=== PATIENT | male | born 1960 | race Caucasian/White ===

== ENCOUNTER 2016-06-21 08:12 | Emergency (ER) | payer BC ==
[~2016-06-21] VITALS: Ht 185.4 cm; Wt 215.0 kg
[2016-06-21] MEDS ORDERED: SOD CHLORIDE 0.9% 1,000 ML IV STA ×2 (08:19→10:25)
[2016-06-21 08:26] VITALS: Ht 185.4 cm; Wt 215.0 kg
--- NOTE | 2016-06-21 08:35 | ERA ---
ER Documentation Chief Complaint Date/Time DATE: 06/21/16 TIME: 08:26 Chief Complaint HPI This is a 55-year-old male with a known history of hypertension and previous triple bypass in 2003 the presents to the emergency department today after he had a sudden onset of dizziness lightheadedness and a feeling as though he was going to pass out. The patient awoke this morning, and had not eaten breakfast. He stated he went to the gym and did 30 minutes on the elliptical and then weight training. During the weight training the patient stated he began to feel very dizzy. He took a shower and the dizziness still persisted. The patient lying down and felt as though he was going to pass out but did not have a complete transient loss of consciousness. A worker at the gym phone 911 and when EMS arrived they indicated the patient was cool clammy and hypotensive with a blood pressure of 90/60. By the time he arrived to the hospital he had received 350 cc of normal saline and his blood pressure had improved to 110/80. The patient indicates he works out on a daily basis and does not normally eat breakfast prior to working out. He states he has never had any similar symptoms in the past. He does state he feels mild shortness of breath and 7 days prior to arrival returned from a trip from [place]. He denies any swelling or pain in his lower extremities. He denies any chest pain or pressure that radiates to the neck or back or jaw. EMS had performed an EKG tracing that was concerning for possible ST segment elevation in the inferior leads. Again the patient denies any chest pain or pressure. He denies a productive or nonproductive cough. He has had no rashes. He denies any fevers shaking or chills ROS All systems reviewed and are negative except as per history of present illness. Medications Home Meds Reported Medications Ascorbic Acid* (Vitamin C*) 500 Mg Capsule.sa, 500 MG PO DAILY, CAP 06/21/16 Cholecalciferol* (Vitamin D3*) 1,000 Unit Tablet, 1000 UNIT PO DAILY, TAB 06/21/16 Aspirin (Low Dose Aspirin) 81 Mg Tablet.dr, 81 MG PO DAILY, #30 TAB 06/21/16 Metoprolol Tartrate* (Lopressor*) 25 Mg Tab, 25 MG PO DAILY, #60 TAB 06/21/16 Rosuvastatin Calcium* (Crestor*) 20 Mg Tablet, 20 MG PO QHS, #30 TAB 06/21/16 Isosorbide Mononitrate* (Isosorbide Mononitrate*) 30 Mg Tab.er.24h, 30 MG PO DAILY, TAB 06/21/16 Clopidogrel Bisulfate (Clopidogrel) 75 Mg Tablet, 75 MG PO DAILY, #30 TAB 06/21/16 Irbesartan* (Irbesartan*) 150 Mg Tablet, 150 MG PO DAILY, TAB 06/21/16 Sitagliptin Phos/Metformin HCl (Janumet 50-500 mg Tablet) 1 Each Tablet, 1 EACH PO DAILY, TAB 06/21/16 Allergies Allergies: Coded Allergies: No Known Allergy (Unverified , 06/21/16) Physical Exam Vitals Vital Signs Date Time Temp Pulse Resp B/P Pulse Ox O2 Delivery O2 Flow Rate FiO2 06/21/16 10:05 73 14 133/72 100 Room Air 06/21/16 10:01 133/72 141/78 133/74 06/21/16 08:26 97.6 66 14 116/73 100 Physical Exam Constitutional:Well-developed. Well-nourished. HEENT:Normocephalic. Atraumatic.Pupils were equal round reactive to light. Dry mucous membranes.No tonsillar exudates. Neck: No nuchal rigidity. No lymphadenopathy. No posterior cervical spine tenderness or step-offs. Respiratory: Not using accessory muscles of respiration.Lungs were clear to auscultation bilaterally. No rhonchi. No rales. No wheezing. Cardiovascular: Regular rate regular rhythm.No murmurs. No rubs were appreciated.S1, S2 normal. Distal pulses are palpable 2+ bilaterally. GI: Abdomen was soft. Nontender. Non Distended. No pulsatile abdominal masses or bruits. No rebound. No guarding. Bowel sounds were present and normal. Muscle skeletal: Full range of motion of both the upper and lower extremities bilaterally.Normal muscle tone.No assymetrical calf tenderness or swelling. Homans sign negative Skin: Clammy with no petechia, no purpura. No lesions on the palms or the soles of the feet. No maculopapular rash. NEURO: Patient was alert, awake, orientated x3.No facial droop. Gait observed and normal with no ataxia.Speech had regular rate and rhythm. No focal neurological deficits. Result Diagram: 06/21/16 0830 06/21/16 0830 Results 24 hrs Laboratory Tests Test 06/21/16 08:30 Activated Partial Thromboplast Time 20.9Sec Alanine Aminotransferase (ALT/SGPT) 44IU/L Albumin 4.2g/dl Albumin/Globulin Ratio 1.40 Alkaline Phosphatase 77IU/L Anion Gap 19 Aspartate Amino Transf (AST/SGOT) 26IU/L B-Type Natriuretic Peptide 53PG/ML Basophils # 0.010^3/ul Basophils % 0.3% Blood Morphology Comment Blood Urea Nitrogen 18mg/dl Calcium Level 9.2mg/dl Carbon Dioxide Level 24mmol/L Chloride Level 101mmol/L Creatine Kinase 58IU/L Creatine Kinase Index 1.0 Creatinine 1.20mg/dl Creatinine Kinase MB (Mass) 0.56ng/ml Direct Bilirubin 0.00mg/dl Eosinophils # 0.210^3/ul Eosinophils % 2.6% Globulin 3.00g/dl Glucose Level 364mg/dl Hematocrit 46.4% Hemoglobin 15.4g/dl INR International Normalized Ratio 1.06 Indirect Bilirubin 0.5mg/dl Lymphocytes # 1.310^3/ul Lymphocytes % 19.5% Mean Corpuscular Hemoglobin 26.7pg Mean Corpuscular Hemoglobin Concent 33.1g/dl Mean Corpuscular Volume 80.6fl Mean Platelet Volume 9.3fl Monocytes # 0.510^3/ul Monocytes % 7.0% Neutrophils # 4.710^3/ul Neutrophils % 70.6% Nucleated Red Blood Cells # 0.010^3/ul Nucleated Red Blood Cells % 0.0/100WBC Platelet Count 53159^3/UL Potassium Level 5.4mmol/L Prothrombin Time 13.8Sec Prothrombin Time Ratio 1.1 Red Blood Count 5.7510^6/ul Red Cell Distribution Width 14.0% Sodium Level 139mmol/L Total Bilirubin 0.5mg/dl Total Protein 7.2g/dl Troponin I < 0.012ng/ml White Blood Count 6.710^3/ul Current Medications Medications (Trade) Dose Ordered Sig/Tino Route PRN Reason Start Time Stop Time Status Last Admin Dose Admin Sodium Chloride 1,000 ml @ 1,000 mls/hr Q1H STAT IV 06/21/16 08:19 06/21/16 09:18 DC 06/21/16 08:41 Sodium Chloride (NS) 100 ml @ ud STK-MED ONCE .ROUTE 06/21/16 09:24 06/21/16 09:25 DC 06/21/16 09:53 Iohexol 150 ml 150 ml STK-MED ONCE .ROUTE 06/21/16 09:24 06/21/16 09:25 DC 06/21/16 09:53 Sodium Chloride (NS) 1,000 ml @ 1,000 mls/hr Q1H STAT IV 06/21/16 10:25 06/21/16 11:24 Procedures/MDM The patient presented to the emergency department with findings suggestive of a near syncope episode. The differential diagnosis of syncope is vast but my workup considered common benign disorders to life-threatening processes. Therefore my differential diagnosis included but was not limited to reflex- mediated syncope such as vasovagal or carotid sinus syncope from coughing, sneezing, micturition, or GI stimulation (eg, defecation). Other etiologies in my workup included orthostatic hypotension which could cause syncope from an abrupt drop in venous return to heart from volume depletion. An EKG and cardiac enzymes were obtained to rule out cardiac arrhythmias or ischemia. Cardiopulmonary disease such as valvular disease, hypertrophic cardiomyopathy, pericardial tamponade, or pulmonary embolism were considered as a factor causing the patients syncope episode. The patient had no difference in blood pressure in both arms that could suggest aortic dissection or subclavian steal syndrome. Rectal exam was negative for fecal occult blood that could suggest GI bleeding. Ancillary laboratory work was obtained to evaluate for metabolic or electrolyte abnormalities. The patient had no witnessed brief tonic movements that could suggest postictal confusion. The patient was placed on a monitoring engineer, continuous pulse oximetry and IV access established by nursing staff. The patient received a total of 2 L boluses of normal saline. Orthostatic vital signs have been performed after the patient had already received fluid however the patient's physical exam findings were likely suggestive of a vasovagal near syncopal episode. The patient was a high pretest probability according to the well's criteria for pulmonary embolism. Therefore obtained a CT scan of the patient's chest and there is no evidence of a pulmonary embolism. The patient was hyperglycemic without ketosis. The patient had not had any oral intake for over 12 hours and therefore hemoglobin A1c was performed. The patient indicates he is prediabetic and receives hemoglobin A1c's every 4 months which have been normal. The patient is very good outpatient follow-up and stated he would feel comfortable being discharged home with strict follow- up to see his primary care physician. Therefore the patient was discharged home in fair condition. They were instructed to return to the emergency department at any time if there was any worsening of their condition. The patient stated they would follow up with their PCP in the next 24-48 hours to initiate a suitable medication regimen under the care of their PCP as well as to allow their PCP to monitor any drug reactions. The patient was discharged home with prescriptions after they gave informed consent to the new medication. They were also fully informed by myself on the adverse effects and adverse drug interactions in order to provide adequate safeguards to prevent possible adverse reactions to medications. Departure Diagnosis: Primary Impression: Vasovagal near-syncope Additional Impression: Hyperglycemia without ketosis Condition: TAMIKO Coronado Jun 21, 2016 08:35
[2016-06-21] MEDS ORDERED: IRBE150T21 PO (08:42)
[2016-06-21] MEDS ORDERED: SITA1TAB PO (08:42)
[2016-06-21] MEDS ORDERED: CLOP75TA27 PO (08:43)
[2016-06-21] MEDS ORDERED: ISOS30TA5 PO (08:43)
[2016-06-21] MEDS ORDERED: ROSU20TA PO (08:44)
[2016-06-21] MEDS ORDERED: METO-448 PO (08:44)
[2016-06-21] MEDS ORDERED: ASPI-664 PO (08:44)
[2016-06-21] MEDS ORDERED: ASCO500C7 PO (08:45)
[2016-06-21] MEDS ORDERED: CHOL100062 PO (08:45)
[2016-06-21 08:46] LABS: BASOPHILS % 0.3 % (0.0-2.0); EOSINOPHILS # 0.2 10^3/ul (0.0-0.5); EOSINOPHILS % 2.6 % (0.0-7.0); HEMATOCRIT 46.4 % (42.0-52.0); HEMOGLOBIN 15.4 g/dl (14.0-18.0); LYMPHOCYTES # 1.3 10^3/ul (0.8-2.9); LYMPHOCYTES % 19.5 % (15.0-51.0); MEAN CORPUSCULAR HEMOGLOBIN 26.7 pg (29.0-33.0); MEAN CORPUSCULAR HGB CONC 33.1 g/dl (32.0-37.0); MEAN CORPUSCULAR VOLUME 80.6 fl (82.0-101.0); MEAN PLATELET VOLUME 9.3 fl (7.4-10.4); MONOCYTE # 0.5 10^3/ul (0.3-0.9); NEUTROPHIL # 4.7 10^3/ul (1.6-7.5); NEUTROPHILS % 70.6 % (39.0-77.0); PLATELET COUNT 149 10^3/UL (140-440); RED BLOOD COUNT 5.75 10^6/ul (4.70-6.10); UNCORRECTED WBC 6.7 10^3/ul (4.8-10.8); WHITE BLOOD COUNT 6.7 10^3/ul (4.8-10.8)
[2016-06-21 08:51] LABS: CONDITION 1; LH ANALYZER COMMENTS 1
--- NOTE | 2016-06-21 08:55 | RADRPT ---
PROCEDURE: XR Chest. CLINICAL INDICATION: Shortness of breath TECHNIQUE: 2 AP views of the chest obtained COMPARISON: None. FINDINGS: No focal airspace opacification, pleural effusion or pneumothorax is seen. There is a nodular densi ty which projects in the right lower lobe, thought to reflect a nipple shadow. The cardiomediastina l silhouette is mildly enlarged. There are post cardiac surgery changes with sternotomy wires. The osseous structures are unremarkable. IMPRESSION: 1. No radiographic evidence of acute cardiopulmonary disease. 2. Mild cardiomegaly and post cardiac surgery changes. RPTAT: HH .Cyndi Lambert MD, MD Date Time Electronically viewed and signed by .Cyndi Lambert MD, on 06/21/2016 08:55 .G/
[2016-06-21 09:02] LABS: INR 1.06; PROTIME 13.8 Sec (12.2-14.2); PT RATIO 1.1
[2016-06-21 09:03] LABS: PARTIAL THROMBOPLASTIN TIME 20.9 Sec (25.0-35.0)
[2016-06-21 09:06] LABS: ALBUMIN 4.2 g/dl (3.3-4.9)
[2016-06-21 09:07] LABS: CHLORIDE 101 mmol/L (97-110); POTASSIUM 5.4 mmol/L (3.5-5.1); SODIUM 139 mmol/L (135-144)
[2016-06-21 09:09] LABS: ANION GAP 19 (8-16); ASPARTATE AMINO TRANSFERASE 26 IU/L (15-46); BILIRUBIN,INDIRECT 0.5 mg/dl (0-1.1); BILIRUBIN,TOTAL 0.5 mg/dl (0.2-1.3); CARBON DIOXIDE 24 mmol/L (21-31)
[2016-06-21 09:10] LABS: ALANINE AMINOTRANSFERASE 44 IU/L (13-69); ALKALINE PHOSPHATASE 77 IU/L (42-121); BLOOD UREA NITROGEN 18 mg/dl (7-20); CALCIUM 9.2 mg/dl (8.4-10.2); CREATINE KINASE 58 IU/L (23-200); GLUCOSE 364 mg/dl (70-220); TOTAL PROTEIN 7.2 g/dl (6.1-8.1)
[2016-06-21 09:19] LABS: B-TYPE NATRIURETIC PEPTIDE 53 PG/ML (0-125)
[2016-06-21 09:22] LABS: CK-MB 0.56 ng/ml (0.0-2.4); TROPONIN-I < 0.012 ng/ml (0.00-0.12)
[2016-06-21] MEDS ORDERED: SOD CHLORIDE 0.9% 100 ML ONE (09:24)
[2016-06-21] MEDS ORDERED: IOHEXOL 300MG/ML 150 ML BTL ONE (09:24)
--- NOTE | 2016-06-21 10:02 | RADRPT ---
PROCEDURE: CT angiogram of the chest with contrast CLINICAL INDICATION: SOB TECHNIQUE: Axial imaging was obtained of the chest following intravenous administration of 120 ml of Omnipaque-300. Standard CT angiogram of the chest protocols were performed. The total exam CTDI equals 17.2 mGy and the total exam DLP equals 754.3 mGy-cm. COMPARISON: None available FINDINGS: The patient status post previous thoracotomy. There is coronary artery disease present. The heart is within normal limits in size. No evidence of pericardial effusion. No evidence of pleural effus ions and pneumothorax. There is a 2 mm left lower lateral subpleural pulmonary nodule that is nonsp ecific. No other evidence of pulmonary nodules. Minimal dependent atelectasis. There is central l obular emphysema present. There is bilateral suprahilar and infrahilar bronchiectasis. Images of th e upper abdomen are unremarkable. No evidence of mediastinal hilar or axillary lymphadenopathy. The re is extensive spondylosis involving the lower cervical and thoracic and upper lumbar spine. There are no acute osseous findings. Mild atherosclerotic vascular disease of the proximal abdominal aorta. No evidence of aortic dissec tion or aneurysm. No evidence of central pulmonary emboli. The origin of the great vessels are unr emarkable. The right left subclavian arteries are unremarkable. Minimal hard atherosclerotic plaqu e involving the origin of the SMA. The celiac axis appears unremarkable. IMPRESSION: 1. Evidence of previous thoracotomy. 2. No evidence of central pulmonary emboli. 3. No evidence of aortic aneurysm or dissection. 4. Central lobular emphysema. Bronchiectasis. Negative for thoracic or upper abdominal lymphadenop athy. 5. Nonspecific 2 mm left lateral lower lung subpleural pulmonary nodule. RPTAT:AAJJ Physician Effie Date Time Electronically viewed and signed by Physician Effie on 06/21/2016 10:01 BM/
[2016-06-21 10:05] VITALS: BP 133/72; PULSE 73; RESP 14
[2016-06-21] MEDS ORDERED: IOHEXOL 300MG/ML 30 ML BTL ONE (14:06)
== END 2016-06-21 16:16 | disposition home or self-care (01) ==
LOC: E/R 08:12
DX: R55 Syncope and collapse (principal); E11.65 Type 2 diabetes mellitus with hyperglycemia; I10 Essential (primary) hypertension; R06.02 Shortness of breath; Z79.82 Long term (current) use of aspirin; Z79.84 Long term (current) use of oral hypoglycemic drugs
CPT/HCPCS: 71010; 71275; 80053; 82550; 82553; 83036; 83880; 84484; 85025; 85610; 85730; 93005; 96360; 96361; 99285; J7030; Q9967